=== PATIENT | female | born 1995 | race Caucasian/White ===

== ENCOUNTER → 2019-04-22 13:36 | Outpatient (BNVA) | payer SELFPAY | PROVIDERS: Visit Provider Nurse Practitioner | DX: R05 Cough (principal) | CPT/HCPCS: 87804 ==

== ENCOUNTER → 2020-01-19 12:58 | Outpatient (BNVA) | payer SELFPAY | PROVIDERS: Visit Provider Nurse Practitioner Women's Health | DX: Z34.90 Encounter for supervision of normal pregnancy, unspecified, unspecified trimester (principal) | CPT/HCPCS: 81000 ==

== ENCOUNTER 2020-01-20 15:17 | Observation (INO) | payer SELFPAY ==
[2020-01-20 15:16] VITALS: BMI 29.0
[2020-01-20 15:18] VITALS: BP 110/69; PULSE 89; RESP 18; TEMP 36.8; O2SAT 99
[2020-01-20] MEDS: sodium chloride 0.9% 1,000 ML 999 ML IV (15:49)
[2020-01-20] MEDS: metoclopramide 5 mg/mL SDV 2 mL 10 MG IVP ×2 (15:50→21:12)
[2020-01-20 16:32] LABS: Basophils % 0.2 %; Eosinophils # 0.1 10^3/uL (0.0-0.8); Eosinophils % 1.1 %; Hematocrit 37.6 % (37.0-47.0); Hemoglobin 12.8 g/dL (11.5-15.3); Lymphocytes # 1.6 10^3/uL (0.8-4.8); Lymphocytes % 25.5 %; Mean Corpuscular Hemoglobin 31.8 pg (28.0-34.0); Mean Corpuscular Volume 93.3 fL (81-99); Mean Platelet Volume 12.5 fL (7.4-10.4); Monocytes # 0.4 10^3/uL (0.2-0.9); Monocytes % 6.7 %; Neutrophils # 4.12 10^3/uL (1.8-7.7); Neutrophils % 66.2 %; Nucleated Red Blood Cells % 0 %; Platelet Count 221 10^3/cmm (130-400); Red Blood Count 4.03 10^6/uL (4.1-5.3); Red Cell Distribution Width 11.9 % (12.1-15.1); White Blood Count 6.2 10^3/uL (4.0-10.0)
[2020-01-20 16:38] LABS: Alanine Aminotransferase 63 U/L (0-33); Albumin Level 4.5 g/dL (3.5-5.2); Alkaline Phosphatase 59 IU/L (35-105); Blood Urea Nitrogen 4 mg/dL (6-20); Calcium 9.4 mg/dL (8.5-10.5); Carbon Dioxide 21 mmol/L (22-29); Chloride 101 mmol/L (98-107); Globulin 2.2 g/dL (1.3-4.6); Glomerular Filtration Rate 196.1 mL/min (90-130); Glucose 81 mg/dL (65-115); Osmolality Calculated 274 mOsm/kg (285-295); Sodium 134 mmol/L (136-145); Total Bilirubin 0.9 mg/dL (0.15-1.2); Total Protein 6.7 g/dL (6.6-8.7)
[2020-01-20] MEDS: D5-NS 0.45% + KCL 20 mEq 20 MEQ/1,000 ML BAG 500 MEQ IV ×2 (16:46→18:43)
[2020-01-20 16:48] LABS: Anion Gap 15.5 (5-19); Potassium 3.5 mmol/L (3.5-5.1)
[2020-01-20 16:49] LABS: Aspartate Amino Transferase 40 U/L (0-32)
[2020-01-20 20:59] VITALS: BP 96/63; PULSE 68; RESP 16; TEMP 36.7; O2SAT 98
--- NOTE | 2020-01-20 21:00 | P.SS_ITS ---
Short Stay Summary Providers Date of Admit/Discharge: 02/01/20 Attending Provider: Norm Uribe MD Chief Complaint: nasuea, vomiting HPI History of Present Illness Patient is a 25-year-old 3, para 2-0-0-2 with an LMP of 11/15/2019 and an EDC of 08/22/2019 based on LMP and consistent with an 8-week ultrasound, which places her at 9-3/7 weeks gestation. Patient had been seen in the office on 01/19/2020 by Kimberley Gonzalez for OB intake visit. She was reporting significant weight loss and difficulty keeping anything down including liquids. She was prescribed promethazine to be used in addition to B6 and Pepcid. She was to follow-up in the office the next day, 01/20/2020. When she came to the office, she was reporting continued significant nausea and vomiting with inability to keep much of anything down. As a result she was sent to the hospital for direct admission (observation status) for IV hydration and parenteral antiemetics. Patient was reporting lightheadedness, dizziness, and minimal urine output. She denied any actual syncopal episodes. Review of Systems Const: Reports: change in weight and fatigue; Denies: fever(s) or chills ENMT: Denies: throat pain or nasal congestion Card: Reports: lightheadedness; Denies: chest pain, palpitations or swelling of feet/ankles Resp: Denies: dyspnea, productive cough, non-productive cough or wheezing GI: Reports: nausea and vomiting; Denies: abdominal pain, diarrhea or constipation Musc: Denies: back pain Neuro: Reports: dizziness; Denies: headache(s) Psych: Denies: anxiety or depression Endo: Denies: polyuria, cold intolerance or heat intolerance [place]/Lymph: Denies: easy bruising or easy bleeding Home Meds/Allergies Home Medications and Allergies Home Medications Medication Instructions Recorded Confirmed Type prenat.vits,kenisha,[id number] 1 tab PO DAILY 01/19/20 01/19/20 History Allergies Allergy/AdvReac Type Severity Reaction Status Date / Time Penicillins Allergy childhood Verified 01/20/20 14:48 codeine AdvReac vomiting Verified 01/20/20 14:48 PFSH Acute PFSH: Medical History No pertinent past medical history neghx: htn,dm,thyroid,dvt/pe, herpes ---denies partner with herpes Surgical History Hx of cholecystectomy (~03/2016) Family History Grandmother Breast cancer Paternal-- dx age 30s Family/Other Breast cancer Maternal Great Grandmother-- dx age late 50's Grandfather Diabetes Maternal Hypertension Maternal Denies family history of Colon cancer Ovarian cancer Heart disease Bleeding disorder Uterine cancer Thyroid disease Stroke Social History Additional social history: - Tobacco use: Has Vaped since 2016-- currently vapes two times per day Alcohol use: denies Drug use: Marijuana-- last use mid December 2019 Female Reproductive History: : 3 Vitals/I&O/Wt Last Vital Signs Temp 98.1 F 01/20/20 20:59 Pulse 68 01/20/20 20:59 Resp 16 01/20/20 20:59 BP 96/63 01/20/20 20:59 Pulse Ox 98 01/20/20 20:59 Physical Exam Const: COMMON NORMALS: no acute distress, average body habitus, alert and well nourished GENERAL APPEARANCE: well developed ORIENTATION/CONSCIOUSNESS: Yes oriented to person, Yes oriented to place and Yes oriented to time Neck/C-Spine: COMMON NORMALS: Thyroid normal GENERAL: Yes trachea midline THYROID: Thyroid normal Resp: COMMON NORMALS: normal respiratory effort and clear to auscultation bilaterally AUSCULTATION: clear to auscultation bilaterally Cardio: COMMON NORMALS: regular rate, regular rhythm, No gallops present (Cardio), No murmurs present (Cardio) and No rub (Cardio) RATE: regular rate RHYTHM: regular rhythm GI: COMMON NORMALS: Soft to palpation, No hepatosplenomegaly present and no masses AUSCULTATION: Yes normoactive bowel sounds PALPATION: Yes Soft to palpation, Yes Tenderness to palpation present (GI) (Mildly tender upper abdomen), Yes No hepatosplenomegaly present and No Hernia present : COMMON NORMALS: Yes no CVA tenderness BLADDER/KIDNEY EXAM: Yes no CVA tenderness EXTERNAL FEMALE EXAM: No Hernia present Back/Pelvis: COMMON NORMALS: no CVA tenderness Neuro: SENSORIUM/ORIENTATION: Yes alert, Yes oriented to person, Yes oriented to place and Yes oriented to time Psych: COMMON NORMALS: normal affect MOOD & AFFECT: Yes euthymic mood Skin: COMMON NORMALS: no rashes or lesions noted GENERAL SKIN EXAM: no rashes or lesions noted and turgor decreased Hospital Course Hospital Course Patient was admitted to the hospital where she was started on IV fluid hydration and given IV Reglan and IM promethazine. After approximately 3 L of fluid, patient reported feeling much better and was having to urinate more frequently. She reported no further nausea or vomiting since getting the IV antiemetics. As a result, she was requesting to go home. She was discharged home in the evening of the date of admission. She was instructed to continue the oral promethazine as needed. She was also given a prescription for promethazine suppositories to be used if she was unable to keep the pills down. She was instructed to keep her next scheduled appointment in the office. SSS Data Data Completed and Pendin01/20/2020 CBC: WBC 6.2, hemoglobin 12.8, hematocrit 37.6, MCV 93.3, platelet 221,000 CMP: Sodium 134, potassium 3.5, chloride 101, CO2 21, BUN 4, creatinine 0.4, glucose 81, calcium 9.4, total bili 0.9, AST 40, ALT 63, alk phos 59, total protein 6.7, albumin 4.5 Serum magnesium 2.0 urinalysis: Specific gravity 1.025, trace protein, ketones 2+, blood negative, nitrate negative, leukocyte esterase negative. Diagnoses at Discharge Discharge Diagnosis (1) Hyperemesis gravidarum with dehydration: Status: Acute Discharge Plan Discharge Patient Disposition: Home Prescriptions: Continued prenat.vits,kenisha,[id number] Tablet 1 tab PO DAILY RF: 0 promethazine 25 mg tablet 25 mg PO Q6H PRN (Reason: nausea and vomiting) Qty: 30 RF: 0 promethazine 25 mg suppository 25 mg MS Q6H PRN (Reason: nausea and vomiting) Qty: 12 RF: 0 famotidine [Pepcid] 20 mg tablet 20 mg PO BID Qty: 60 RF: 1 Discharge Orders: Discharge Order (Routine); Ordered 01/20/20 Ordered By: Norm Uribe Patient Instructions: Hyperemesis Gravidarum, OB Undelivered Discharge Activity Restrictions/Additional Instructions: Call office in the morning to get a prescription of Reglan. Eat a bland diet, no greasy or spicy foods. Drink adequate fluids. Attestations Medical Necessity Statement*: Patient had been admitted as an observation status for IV hydration parenteral antiemetics. 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
--- NOTE | 2020-01-21 15:56 | PC.RESP ---
Smoking Cessation information sent to patient.
== END 2020-01-20 21:34 | disposition home or self-care (01) ==
LOC: OBGYN 20:58 → OPOB 01-21 08:27
PROVIDERS: Admitting Provider Obstetrics & Gynecology; Visit Provider Obstetrics & Gynecology
DX: O21.1 Hyperemesis gravidarum with metabolic disturbance (principal); Z3A.09 9 weeks gestation of pregnancy; O99.331 Smoking (tobacco) complicating pregnancy, first trimester; F17.290 Nicotine dependence, other tobacco product, uncomplicated
CPT/HCPCS: 12345; 36415; 80053; 81000; 83735; 85025; 96360; 96361; 96375; G0378; J2765; J7030

== ENCOUNTER → 2020-02-02 14:00 | Outpatient (BNVA) | payer SELFPAY | PROVIDERS: Visit Provider Obstetrics & Gynecology | DX: Z34.01 Encounter for supervision of normal first pregnancy, first trimester (principal) | CPT/HCPCS: 80307; 81000; 85027; 86592; 86762; 86803; 86850; 86900; 87086; 87340; 87806 ==

== ENCOUNTER → 2020-02-16 09:25 | Outpatient (BNVA) | payer SELFPAY | PROVIDERS: Visit Provider Obstetrics & Gynecology | DX: Z12.4 Encounter for screening for malignant neoplasm of cervix (principal); O99.331 Smoking (tobacco) complicating pregnancy, first trimester; O26.892 Other specified pregnancy related conditions, second trimester; Z67.91 Unspecified blood type, Rh negative | CPT/HCPCS: 81000; 87491; 87591; 88175 ==

== ENCOUNTER → 2020-03-10 11:29 | Outpatient (BNVA) | payer SELFPAY | PROVIDERS: Visit Provider Nurse Practitioner Women's Health | DX: Z34.90 Encounter for supervision of normal pregnancy, unspecified, unspecified trimester (principal) | CPT/HCPCS: 81000 ==

== ENCOUNTER → 2020-04-04 08:10 | Outpatient (BNVA) | payer SELFPAY | PROVIDERS: Visit Provider Obstetrics & Gynecology | DX: Z36.89 Encounter for other specified antenatal screening (principal) | CPT/HCPCS: 76805 ==

== ENCOUNTER → 2020-04-08 15:24 | Outpatient (BNVA) | payer SELFPAY | PROVIDERS: Visit Provider Obstetrics & Gynecology | DX: Z34.80 Encounter for supervision of other normal pregnancy, unspecified trimester (principal); Z3A.20 20 weeks gestation of pregnancy | CPT/HCPCS: 80307; 81000 ==

== ENCOUNTER → 2020-05-03 11:45 | Outpatient (BNVA) | payer SELFPAY | PROVIDERS: Visit Provider Obstetrics & Gynecology | DX: O26.892 Other specified pregnancy related conditions, second trimester (principal); O99.332 Smoking (tobacco) complicating pregnancy, second trimester; Z67.91 Unspecified blood type, Rh negative; R23.8 Other skin changes; Z3A.24 24 weeks gestation of pregnancy; R23.3 Spontaneous ecchymoses | CPT/HCPCS: 81000; 82247; 82950; 85025; 85610; 85730 ==

== ENCOUNTER → 2020-05-31 10:56 | Outpatient (BNVA) | payer SELFPAY | PROVIDERS: Visit Provider Obstetrics & Gynecology | DX: O26.892 Other specified pregnancy related conditions, second trimester (principal); Z67.91 Unspecified blood type, Rh negative | CPT/HCPCS: 84315; 86850 ==

== ENCOUNTER 2020-07-15 12:35 | Outpatient (CLI) | payer MEDICAID, SELFPAY ==
[2020-07-15 12:55] VITALS: BP 119/69; PULSE 103
[2020-07-15 13:33] VITALS: BP 106/62; PULSE 90
[2020-07-15 13:50] VITALS: BP 106/62; PULSE 90; RESP 18; TEMP 36.8
== END 2020-07-15 13:50 | disposition home or self-care (01) ==
LOC: OPOB 12:49 → OBGYN 12:50
PROVIDERS: Visit Provider Obstetrics & Gynecology
DX: O26.899 Other specified pregnancy related conditions, unspecified trimester (principal); Z3A.00 Weeks of gestation of pregnancy not specified; R10.9 Unspecified abdominal pain; N89.8 Other specified noninflammatory disorders of vagina
CPT/HCPCS: 81000; 99211

== ENCOUNTER → 2020-07-26 10:46 | Outpatient (BNVA) | payer MEDICAID, SELFPAY | PROVIDERS: Visit Provider Obstetrics & Gynecology | DX: Z34.80 Encounter for supervision of other normal pregnancy, unspecified trimester (principal) | CPT/HCPCS: 81000; 87081 ==

== ENCOUNTER → 2020-08-05 11:02 | Outpatient (BNVA) | payer SELFPAY | PROVIDERS: Visit Provider Obstetrics & Gynecology | DX: Z34.80 Encounter for supervision of other normal pregnancy, unspecified trimester (principal) | CPT/HCPCS: 81000 ==

== ENCOUNTER → 2020-08-09 11:00 | Outpatient (BNVA) | payer MEDICAID, SELFPAY | PROVIDERS: Visit Provider Obstetrics & Gynecology | DX: Z34.80 Encounter for supervision of other normal pregnancy, unspecified trimester (principal); Z20.822 Contact with and (suspected) exposure to COVID-19 | CPT/HCPCS: 81000; 87635 ==

== ENCOUNTER 2020-08-19 15:10 | Inpatient (IN) | payer MEDICAID, SELFPAY ==
[2020-08-19] VITALS (56 sets, daily range): BP systolic 91–119; BP diastolic 49–75; PULSE 65–103; RESP 16–18; TEMP 36.4–36.8; O2SAT 93–100; BMI 31.4
--- NOTE | 2020-08-19 16:40 | PM.PN ---
Subjective Subjective: Interval history: Ms. Tsang is a 25 year old new patient with LMP of 11/15/2019, AJITH 08/21/2020 based on LMP and consistent with 8-week ultrasound ,placing her at 39 5/7 weeks today. Vitals/I&O/Wt Last Vital Signs Pulse 85 08/19/20 16:18 BP 111/66 08/19/20 16:18 Physical Exam Narrative: EXAM NARRATIVE: GA: Alert and oriented ?3. Lungs: Clear to auscultation bilaterally. Heart: Regular rhythm and rate. Abdomen: Gravid, full the height equals dates, nontender. CALL CENTER REPRESENTATIVE: SVE; dilation: 4-5 cm, effacement: 80%, station: -3, presentation: Vertex, membranes: Intact. Extremities: no edema, no cyanosis, no calves pain. heart tracing: Basal rate: 140 bpm, Variability: Moderate, Accelerations: Present, Decelerations: Absent, Contraction: q3min irregular A&P Assessment and plan (1) Term : MrsHawa: 25-year-old female with an estimated gestational age at 39 weeks 5 days with irregular contractions at this time. In active labor. heart tracing category 1, anticipate vaginal delivery. Plan: Epidural anesthesia Continuous monitoring. 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
[2020-08-19] MEDS: oxytocin 30 UNIT/500 ML BAG IV (16:48)
[2020-08-19] MEDS: lactated ringers 1,000 ML 999 ML IV (16:48)
[2020-08-19 17:43] LABS: Basophils % 0.4 %; Eosinophils # 0.1 10^3/uL (0.0-0.8); Hematocrit 33.7 % (37.0-47.0); Hemoglobin 10.7 g/dL (11.5-15.3); Lymphocytes # 1.5 10^3/uL (0.8-4.8); Lymphocytes % 18.9 %; Mean Corpuscular HGB Conc 31.8 g/dL (30.0-36.0); Mean Corpuscular Hemoglobin 29.1 pg (28.0-34.0); Mean Corpuscular Volume 91.6 fL (81-99); Mean Platelet Volume 11.4 fL (7.4-10.4); Monocytes # 0.5 10^3/uL (0.2-0.9); Monocytes % 6.1 %; Neutrophils # 5.76 10^3/uL (1.8-7.7); Neutrophils % 73.2 %; Nucleated Red Blood Cells % 0 %; Platelet Count 252 10^3/cmm (130-400); Red Blood Count 3.68 10^6/uL (4.1-5.3); Red Cell Distribution Width 13.1 % (12.1-15.1); White Blood Count 7.9 10^3/uL (4.0-10.0)
--- NOTE | 2020-08-19 17:47 | P.ANESASSM_ITS ---
Pre-Anesthetic Assessment Pre-Anesthetic Assessment: Height/Weight: Height 1.68 m Weight 88.451 kg Pulse BP 80 110/71 08/19/20 17:33 08/19/20 17:33 Preop Diagnosis: Active Labor Proposed Procedure: Labor Epidural Was Beta Johann taken within 24 hours: N/A Was Clonidine taken within 24 hours: N/A Last intake: solids -1230 liquids- water 1730 Social: Social History: Tobacco and No alcohol Exam: Pre-Anes Outpt Exam: alert, oriented x 3 and clear to auscultation bilaterally Airway: Submandibular: WNL Cervical ROM: WNL MP: 2 Dentition: Full History/ROS: No significant history except as noted Pulmonary: Pulmonary: None reported CV/HEM: CV/HEM: None reported : : None reported Hepatic: Hepatic: None reported GI: GI: None reported Metabolic: Metabolic: None reported Musc/skel: Musc/skel: None reported Neuropsych: Neuropsych: Anxiety Anesthetic Plan: ASA status: 2 Anesthesia: Anesthesia Evaluation and Eval. for regional block Other: Labor Epidural Risk of > 500 ml blood loss (7ml/kg in children): No Meds/Allergies Current Medications: Current Medications Generic Name Dose Route Start Last Admin Trade Name Freq PRN Reason Stop Dose Admin Oxytocin 30 unit in 500 ml s @ 1 mls/hr 08/19/20 15:45 08/19/20 16:48 Pitocin IV 1 milliunit/min .Q24H DALIA 1 mls/hr Administration Protocol 1 MILLIUNIT/MIN Lactated Ringer's 1,000 mls @ 999 m ls/hr 08/19/20 16:12 08/19/20 16:48 Lactated Ringers IV 999 mls/hr .Q1H1M PRN Administration See label comment s PFSH Anesthesia PFSH: Medical History No pertinent past medical history neghx: htn,dm,thyroid,dvt/pe, herpes ---denies partner with herpes Surgical History Hx of cholecystectomy (~03/2016) Family History Grandmother Breast cancer Paternal-- dx age 30s Family/Other Breast cancer Maternal Great Grandmother-- dx age late 50's Grandfather Diabetes Maternal Hypertension Maternal Denies family history of Colon cancer Ovarian cancer Heart disease Bleeding disorder Uterine cancer Thyroid disease Stroke Social History Additional social history: - Tobacco use: Has Vaped since 2016-- currently vapes 2-3 times weekly Alcohol use: denies Drug use: Marijuana-- last use mid December 2019 Female Reproductive History: : 3 Data Anesthesia CBC & Chem 7: 08/19/20 16:25 Other Labs: Laboratory Results - last 48 hr 08/19/20 16:25 WBC 7.9 RBC 3.68 L Hgb 10.7 L Hct 33.7 L MCV 91.6 MCH 29.1 MCHC 31.8 RDW 13.1 Plt Count 252 MPV 11.4 H Neut % (Auto) 73.2 Lymph % (Auto) 18.9 Prentiss % (Auto) 6.1 Eos % (Auto) 1.0 Baso % (Auto) 0.4 Neut # (Auto) 5.76 Lymph # (Auto) 1.5 [place]rentiss # (Auto) 0.5 Eos # (Auto) 0.1 Baso # (Auto) 0.0 Nucleated RBC % (auto) 0 Nucleated RBCs # 0.0 Cardiac Studies: No Data to Display
[2020-08-19] MEDS: dextrose 5%-lactated ringers 1,000 ML 125 ML IV (18:09)
[2020-08-19 18:11] LABS: Amphetamines Screen Urine Negative (Negative); Barbiturates Screen Urine Negative (Negative); Benzodiazepines Screen Urine Negative (Negative); Cocaine Screen Urine Negative (Negative); Opiate Screen Urine Negative (Negative); PCP Screen Urine Negative (Negative); THC Screen Urine Negative (Negative)
--- NOTE | 2020-08-19 18:21 | P.ANES_ITS ---
Anesthesia Procedures Procedure/Date: 08/19/20 Epidural: Time Out Performed: Yes Consents Signed: Procedure Consent Consent: requested by attending/covering physician and from patient Lumbar Level: L3-L4 Epidural position: sitting Epidural procedure: sterile prep of area, 1% lidocaine to numb the area, negative for paresthesia passed, test do se given, 1.5% xylocaine 1:200k epi, no systemic response, sterile dressing applied, L.U.D. no apparent complications and 0.2% Ropiavacaine @ mls/hr (13 ml/hr)
--- NOTE | 2020-08-19 20:18 | PM.DELIVERY ---
Delivery Note: Date of delivery: August 19, 2020 Pre-delivery diagnoses: Term Post-delivery diagnoses: Term delivered Procedure: Spontaneous vaginal delivery Op report anesthesia: Epidural Delivering Physician: Frank Romero MD Estimated blood loss (mL): 300 Pre-Delivery Course: Ms. Tsang is a 25 year old new patient with LMP of 11/15/2019, AJITH 08/21/2020 based on LMP and consistent with 8-week ultrasound ,placing her at 39 5/7 weeks today. She has been experiencing painful uterine contractions for the past 2 days. The contractions are occurring at 3-4 minute intervals with approximately 30 second duration. She continues to feel movement between the contractions. She denies vaginal bleeding or rupture of membranes. Refers passing her mucous plug this morning. At the clinic cervical dilation noted to be 4 to 5 cm with 80% effacement, -3 station, vertex presentation with intact membranes. Admitted to L&D oxytocin started for augmentation of labor and she progressed rapidly to have a spontaneous vaginal delivery. CC: Onset of labor at term. HPI: Received appropriate care. Daily vitamins since the start of care. labs have all been normal, including negative for HIV. She was found to negative for Group B Strep from screening at 36 weeks. She has gained approximately 21 lbs 10 oz throughout the . She denies a history of HTN during . Glucose tolerance screening for gestational diabetes was negative. complicated by growth restricted fetus due to tobacco use. Delivery: The patient was noted to be complete and pushing, so was placed in the dorsal lithotomy position, prepped and draped in the usual sterile fashion for a vaginal delivery. Pt. Noted to have epidural anesthesia. At 2009 the patient delivered a viable female infant weighing 3020 g with scores of 9 and 10 at one and five minutes, respectively. The vertex was delivered spontaneously over an intact perineum. The patient was asked to push and the head delivered spontaneously in the ANDREW position, over an intact perineum. A nuchal cord was checked and 1 noted, and delivered through and relieved around head as necessary. The anterior shoulder delivered easily and the posterior shoulder followed. The remainder of the infant was easily delivered and the oropharynx and nasopharynx was bulb suctioned. The was noted to have spontaneous cry and spontaneous movement of all four extremities. The cord was clamped x 2 and cut and noted to have 2 arteries and one vein. The infant was passed to the mother's abdomen where nursing personnel were in attendance. Cord blood sample was then obtained. The placenta delivered intact spontaneously and the uterus was explored. 20 units of Pitocin was placed in the IV bag to firm the uterus. Examination of the cervix and vaginal vault did not reveal any lacerations. A vaginal pack was then placed. Examination of the perineum showed no lacerations. The vaginal pack was then removed. The patient tolerated this procedure well, and recovered in L&D with her in their LDR room. All sponge and needle counts were correct. 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
[2020-08-19] MEDS: ibuprofen 800 mg tablet PO (22:13)
[2020-08-20] VITALS (15 sets, daily range): BP systolic 82–125; BP diastolic 44–62; PULSE 61–83; RESP 18; TEMP 36.5–36.7
[2020-08-20] MEDS: acetaminophen 325 mg Tablet 650 MG PO (05:34)
[2020-08-20 09:15] LABS: Hematocrit 30.9 % (37.0-47.0); Hemoglobin 9.8 g/dL (11.5-15.3); Mean Corpuscular HGB Conc 31.7 g/dL (30.0-36.0); Mean Corpuscular Volume 91.4 fL (81-99); Mean Platelet Volume 11.1 fL (7.4-10.4); Platelet Count 214 10^3/cmm (130-400); Red Blood Count 3.38 10^6/uL (4.1-5.3); White Blood Count 10.2 10^3/uL (4.0-10.0)
[2020-08-20] MEDS: ibuprofen 800 mg tablet PO ×3 (09:18→21:30)
[2020-08-20] MEDS: prenatal vitamin Capsule 1 CAP PO (09:18)
[2020-08-20] MEDS: docusate sodium 100 mg Capsule PO ×2 (09:18→17:23)
--- NOTE | 2020-08-20 13:40 | P.DS_ITS ---
Discharge Providers DIRECT SUPPORT STAFF Date of Admission: 08/19/20 15:10 Date of Discharge: 08/20/20 Attending Provider at Admission: Frank Romero MD Attending Provider at Discharge: Frank Romero MD Diagnoses at Discharge Discharge Diagnosis (1) Rh negative status during in second trimester: Status: Acute (2) Tobacco use in : Status: Acute Qualifiers: Trimester: second trimester Qualified Code(s): O99.332 - Smoking (tobacco) complicating , second trimester (3) Term delivered: Status: Acute Reason for Visit Reason for Visit: Induction Hospital Course Hospital Course Ms. Tsang is a 25 year old new patient with LMP of 11/15/2019, AJITH 08/21/2020 based on LMP and consistent with 8-week ultrasound ,placing her at 39 5/7 weeks on admission after office visit. During the office visit she complained of having contractions on examination she was noted to be 4 to 5 cm in dilation with 80% effacement. After admission to labor and delivery oxytocin was given for augmentation of labor and she progressed to have a spontaneous vaginal delivery of a term male small for gestational age, Apgars 8/9 with a birthweight of 4 3020 g. observation has been uneventful. She is afebrile hemodynamically stable. Tolerating diet well. Ambulating without difficulty. She refers she wants to use the Nexplanon for contraception at the 6-week visit. Information Peripartum Data: Infant Delivery Method: Vaginal Physical Exam Narrative: EXAM NARRATIVE: GA; alert and oriented x 3 HEENT: normal Breasts: engorged Nipples - skin intact Lungs; clear to auscultation Heart: regular rhythm, no murmurs. Abd: Appropriately tender. BS+. Uterine fundus below umbilicus. No Fundal Tenderness. Perineum: normal lochia. Extremities: no edema, no cyanosis, no tenderness. Urinary Catheter Management^: Ruiz: Cath Placed During This Visit: yes, but has since been removed by the nurse Reason for Continuing Indwelling Catheter: Decision to DC Catheter Urinary Catheter Date of Insertion: 08/19/20 Urinary Catheter Time of Insertion: 18:35 Date Urinary Catheter Removed: 08/19/20 Time Urinary Catheter Discontinued: 20:00 Discharge Data Data Completed and Pending: Pending at discharge Category Date Time Status Complete Crossmat ch Routine Lab 08/19/20 16:25 Results Rho D Immune Glob ulin Routine Lab 08/19/20 16:25 Results Type and Screen R outine Lab 08/19/20 16:25 Results Labs from last 24 hours 08/20/20 08/20/20 08/19/20 09:05 09:05 16:25 WBC 10.2 H RBC 3.38 L Hgb 9.8 L Hct 30.9 L MCV 91.4 MCH 29.0 MCHC 31.7 RDW 13.0 Plt Count 214 MPV 11.1 H Neut % (Auto) Lymph % (Auto) [place] % (Auto) Eos % (Auto) Baso % (Auto) Neut # (Auto) Lymph # (Auto) [place] # (Auto) Eos # (Auto) Baso # (Auto) Nucleated RBC % (a uto) Nucleated RBCs # Urine Opiates Scre en Negative Ur Barbiturates Sc reen Negative Ur Phencyclidine S crn Negative Ur Amphetamines Sc reen Negative U Benzodiazepines Scrn Negative Urine Cocaine Scre en Negative U Marijuana (THC) Screen Negative Blood Type Rho(D) Type Antibody Screen Screen Negative 08/19/20 08/19/20 16:25 16:25 WBC 7.9 RBC 3.68 L Hgb 10.7 L Hct 33.7 L MCV 91.6 MCH 29.1 MCHC 31.8 RDW 13.1 Plt Count 252 MPV 11.4 H Neut % (Auto) 73.2 Lymph % (Auto) 18.9 [place] % (Auto) 6.1 Eos % (Auto) 1.0 Baso % (Auto) 0.4 Neut # (Auto) 5.76 Lymph # (Auto) 1.5 [place] # (Auto) 0.5 Eos # (Auto) 0.1 Baso # (Auto) 0.0 Nucleated RBC % (a uto) 0 Nucleated RBCs # 0.0 Urine Opiates Scre en Ur Barbiturates Sc reen Ur Phencyclidine S crn Ur Amphetamines Sc reen U Benzodiazepines Scrn Urine Cocaine Scre en U Marijuana (THC) Screen Blood Type A Negative Rho(D) Type Negative / 0 Antibody Screen Negative Screen Vitals: Last Vital Signs Temp 98.3 F 08/19/20 18:50 Pulse 65 08/20/20 06:24 Resp 17 08/19/20 20:30 BP 112/57 08/20/20 06:24 Pulse Ox 100 08/19/20 18:37 Discharge Plan Discharge Patient Disposition: Home Condition: Stable Prescriptions: New ibuprofen 800 mg tablet 800 mg PO TID PRN (Reason: pain) Qty: 60 RF: 0 Iron (ferrous sulfate) 325 mg (65 mg iron) tablet 325 mg PO BID Qty: 60 RF: 0 Colace 100 mg capsule 100 mg PO BID Qty: 60 RF: 0 acetaminophen 325 mg capsule 325 mg PO Q4H PRN (Reason: fever or pain) Qty: 60 RF: 0 Continued prenat.vits,kenisha,[id number] Tablet 1 tab PO DAILY RF: 0 promethazine 25 mg tablet 25 mg PO Q6H PRN (Reason: nausea and vomiting) Qty: 30 RF: 0 famotidine [Pepcid] 20 mg tablet 20 mg PO BID PRN (Reason: Nausea) RF: 0 Discharge Orders: Discharge Order (Routine); Ordered 08/20/20 Ordered By: Frank Romero Referrals: Frank Romero MD [Physician] - 6 Weeks Discharge Diet: Usual diet Discharge Activity: Increase activity as tolerated Patient Instructions: Opioid Safety Activity Restrictions/Additional Instructions: 1. Please call [facility] [place] [facility] clinic on next working day to make your appointment in 6 weeks. 2. Please stay home until you come back to the clinic on first post-operative check up. 3. Please follow instructions on your medications CAREFULLY. 4. If you have abdominal incision, do not cover it unless dressing is necessary because of drainage. OK to shower, but avoid bath. Leave steri-strips until they fall off. If they are still on one week after surgery, you may remove them. 5. If you had vaginal surgery or vaginal repair, Dr. Romero may instruct you to take SITZ bath. 6. Yellow, blood tinged odorous vaginal discharge is usually normal after hysterectomy or vaginal surgeries. 7. No sexual intercourse, tampons, or douches until you are completely released from the post-operative care. 8. Avoid constipation by eating right and maybe using some Metamucil or Milk of Magnesia. 9. All prescription refills are given during the working hours. Please do no wait till it runs out. Call the clinic at [phone] before your medication runs out. The clinic will get in touch with your doctor to prescribe medications if necessary. 10. Please remain within 40 mile radius from our hospital because emergencies do happen now and then during the post-operative period. 11. If you have stairs at home, take one step at a time slowly and minimize the number of trips. It helps to stay in one floor for the next few days. No lifting except what you can lift by one hand until you are released from the post-operative care. 12. Driving is discouraged until you are well healed. It may be 3-4 weeks before you feel strong enough to drive. You should be able to turn and look through the rear window without pain and you should be able to push the brake pedal very hard without pain before you drive. No fast rules, but SAFETY should be your primary concern. DO NOT drive if you are on sedating medications such as narcotics. 13. Call the clinic (during working hours) to make urgent appointment or go to the Emergency room, if any of the following occurs: i. Vaginal bleeding becomes heavy, more than a period. ii. Incision becomes red and sore, or drains pus. iii. Your temperature is over 100.4 or you have chill. iv. IV site becomes red and swollen (a little ``knot?? is usually OK) v. Persistent nausea and vomiting vi. Persistent constipation or diarrhea vii. Rash or allergic reaction to medications. Discharge Attestations DIRECT SUPPORT STAFF Time Spent in Discharge Care*: greater than 30 min Coding Level of Care Code Acute Licensing Analyst for Chg Fwd Diagnoses Rh negative status during in second trimester O26.892; Z67.91 Tobacco use in O99.332 Trimester: second trimester Term delivered O80
== END 2020-08-20 21:35 | disposition home or self-care (01) | DRG 807 ==
LOC: OBGYN 15:25
PROVIDERS: Admitting Provider Obstetrics & Gynecology; Visit Provider Obstetrics & Gynecology
DX: O99.334 Smoking (tobacco) complicating childbirth (principal); Z37.0 Single live birth; O36.5930 Maternal care for other known or suspected poor fetal growth, third trimester, not applicable or unspecified; O26.893 Other specified pregnancy related conditions, third trimester; O69.81X0 Labor and delivery complicated by cord around neck, without compression, not applicable or unspecified; F17.290 Nicotine dependence, other tobacco product, uncomplicated; Z3A.39 39 weeks gestation of pregnancy; Z67.11 Type A blood, Rh negative
CPT/HCPCS: 36415; 51702; 59025; 59409; 80306; 81000; 85025; 85027; 85460; 86850; 86900; 90384; 96372; 96374; J2795; J3010

== ENCOUNTER → 2021-04-30 14:59 | Outpatient (BNVA) | payer MEDICAID, SELFPAY | PROVIDERS: Visit Provider Nurse Practitioner | DX: J32.9 Chronic sinusitis, unspecified (principal) | CPT/HCPCS: 87400 ==

== ENCOUNTER 2021-11-07 19:43 | Emergency (ER) | payer MEDICAID, SELFPAY ==
[2021-11-07 20:13] VITALS: BP 119/76; PULSE 53; RESP 17; TEMP 36.8; O2SAT 100
--- NOTE | 2021-11-07 20:16 | XRR_ITS ---
PROCEDURE INFORMATION: Exam: XR Chest Exam date and time: 11/07/2021 8:31 PM Age: 26 years old Clinical indication: Chest wall pain; Additional info: Chest pain TECHNIQUE: Imaging protocol: Radiologic exam of the chest. Views: 2 views. COMPARISON: CR Chest 1 [place] [id number] 03/21/2016 7:55 PM FINDINGS: Lungs: Unremarkable. No consolidation. Pleural spaces: Unremarkable. No pleural effusion. No pneumothorax. Heart/Mediastinum: Unremarkable. No cardiomegaly. Bones/joints: Unremarkable. XR/XR chest 2V* [id number] IMPRESSION: No acute findings.
--- NOTE | 2021-11-07 20:17 | ECG_ITS ---
[facility] Test Date: 2021-11-07 Pat Name: Rosie Tsang Department: Room: Gender: Female Head Concierge: : 1995 Requested By: Stephanie Bennett Order Number: [id number] Zelaya MD: Loretta Cole M.D. Measurements Intervals [place] Rate: 60 P: 75 AR: 156 QRS: 58 QRSD: 88 T: 51 QT: 412 QTc: 412 Interpretive Statements SINUS RHYTHM WITH SINUS ARRHYTHMIA POSSIBLE LEFT ATRIAL ENLARGEMENT [-0.1mV P-WAVE IN V1/V2] POSSIBLE RIGHT VENTRICULAR CONDUCTION DELAY [RSR (QR) IN V1/V2] Compared to ECG 03/21/2016 18:20:40 T-wave abnormality no longer present Electronically Signed On 11-08-2021 17:34:46 CDT by Loretta Cole M.D. [id number] f
--- NOTE | 2021-11-07 20:57 | W.ED.CHESTPA ---
HPI - Chest Pain General: Chief Complaint: Chest Pain Stated Complaint: Chest Pain Time Seen by Provider: 11/07/21 20:19 Source: patient Mode of arrival: ambulatory Limitations: no limitations History of Present Illness: 26-year-old female states she is scheduled in the kitchen table tonight few hours ago she should get this cramping type pain in the center of her chest or upper abdomen she states it radiated to her back she is also having some shortness of breath states pain is 6 out of 10 she denies any fever denies any vomiting no heart history she has had a recent trip a month ago to [place] nothing after that. She is on control. Associated symptoms: Reports abdominal pain; Deny dyspnea or fever(s) Review of Systems Const: Denies: fever(s), chills, body aches or change in appetite Eyes: Denies: blurry vision or eye discomfort ENMT: Denies: throat pain or dental pain Card: Reports: chest pain Resp: Denies: dyspnea GI: Reports: abdominal pain : Denies: dysuria Musc: Denies: neck pain or back pain Skin/Breast: Denies: rash Neuro: Denies: headache(s) Psych: Denies: depression [place]/Lymph: Denies: easy bruising All/Imm: Denies: urticaria PFSH ED PFSH: Medical History No pertinent past medical history neghx: htn,dm,thyroid,dvt/pe, herpes ---denies partner with herpes Psychiatric care Surgical History Hx of cholecystectomy (~03/2016) Family History Grandmother Breast cancer Paternal-- dx age 30s Family/Other Breast cancer Maternal Great Grandmother-- dx age late 50's Grandfather Diabetes Maternal Hypertension Maternal Denies family history of Colon cancer Ovarian cancer Heart disease Bleeding disorder Uterine cancer Thyroid disease Stroke Social History Smoking and tobacco status: current every day smoker e-cigarettes E-Cigarette Details: vaporizer device and with nicotine E-cig/vape details: Refill/week. Quit status (tobacco): considering quitting Second hand smoke exposure: No Smoking risk assessment/counseling performed?: No Alcohol intake: former Desire information about alcohol rehabilitation?: No Counseling given: No Desire information about substance/drug rehabilitation?: No Counseling given: No Additional social history: - Tobacco use: Has Vaped since 2017-- currently vapes 2-3 times weekly Alcohol use: denies Drug use: Marijuana-- last use mid December 2019 Physical Exam Const: COMMON NORMALS: no acute distress, patient oriented x3 and healthy appearing HENMT: COMMON NORMALS: normocephalic and atraumatic HEAD & SCALP: normocephalic and atraumatic Eye: COMMON NORMALS: Equal, round and reactive pupils present and EOMs intact bilaterally PUPIL: Yes Equal, round and reactive pupils present Neck/C-Spine: COMMON NORMALS: full ROM and supple Chest: COMMONS NORMALS: normal inspection of the chest and normal palpation of entire chest wall Resp: COMMON NORMALS: normal respiratory effort, No retractions, No use of accessory muscles and clear to auscultation bilaterally AUSCULTATION: clear to auscultation bilaterally Cardio: COMMON NORMALS: regular rate, regular rhythm and No murmurs present (Cardio) RATE: regular rate RHYTHM: regular rhythm GI: COMMON NORMALS: Normal to inspection, nondistended, normoactive bowel sounds present, Soft to palpation, non-tender and no masses PALPATION: Yes Soft to palpation Extremity: COMMON NORMALS: normal to inspection and full ROM Neuro: COMMON NORMALS: patient oriented x3, moves all extremities and no focal motor deficits Psych: COMMON NORMALS: mental status grossly normal, Normal thought process present and cooperative THOUGHT PROCESS: Normal thought process present Skin: COMMON NORMALS: no rashes or lesions noted and no wounds GENERAL SKIN EXAM: no rashes or lesions noted Course Vital Signs: Vital signs: Vital Signs Temperature 98.3 F 11/07/21 20:13 Pulse Rate 52 L 11/07/21 22:28 Respiratory Rate 18 11/07/21 22:28 Blood Pressure 111/65 11/07/21 22:28 Pulse Oximetry 53 L 11/07/21 22:28 Oxygen Delivery Me thod 11/07/21 20:13 MDM - Chest Pain Medical Decision Making Patient presents here with chest and abdominal pain atypical in nature could be gastritis her pain is much improved here D-dimer blood work are normal no signs of acute coronary syndrome or dissection we will start on Protonix she is to follow-up with PCP and return if worsening she understands agrees to plan. Lab Data : 11/07/21 20:43 11/07/21 20:43 Radiology Impressions Chest X-Ray 11/07/21 20:16 IMPRESSION: No acute findings. Laboratory Results WBC 5.9 10^3/uL (4.0-10.0) 11/07/21 20:43 RBC 4.26 10^6/uL (4.1-5.3) 11/07/21 20:43 Hgb 12.9 g/dL (11.5-15.3) 11/07/21 20:43 Hct 40.2 % (37.0-47.0) 11/07/21 20:43 MCV 94.4 fl (81-99) 11/07/21 20:43 MCH 30.3 pg (28.0-34.0) 11/07/21 20:43 MCHC 32.1 g/dL (30.0-36.0) 11/07/21 20:43 RDW 13.5 % (12.1-15.1) 11/07/21 20:43 Plt Count 174 10^3/cmm (130-400) 11/07/21 20:43 MPV 12.1 fL (7.4-10.4) H 11/07/21 20:43 Neut % (Auto) 66.6 % 11/07/21 20:43 Lymph % (Auto) 26.5 % 11/07/21 20:43 Sac % (Auto) 4.4 % 11/07/21 20:43 Eos % (Auto) 1.7 % 11/07/21 20:43 Baso % (Auto) 0.3 % 11/07/21 20:43 Neut # (Auto) 3.95 10^3/uL (1.8-7.7) 11/07/21 20:43 Lymph # (Auto) 1.6 10^3/uL (0.8-4.8) 11/07/21 20:43 Sac # (Auto) 0.3 10^3/uL (0.2-0.9) 11/07/21 20:43 Eos # (Auto) 0.1 10^3/uL (0.0-0.8) 11/07/21 20:43 Baso # (Auto) 0.0 10^3/uL (0.0-0.1) 11/07/21 20:43 Nucleated RBC % (auto) 0 % 11/07/21 20:43 Nucleated RBCs # 0.0 /100WBC 11/07/21 20:43 D-Dimer 0.56 ug/mIFEU (0-0.59) 11/07/21 20:43 Sodium 137 mmol/L (136-145) 11/07/21 20:43 Potassium 3.7 mmol/L (3.5-5.1) 11/07/21 20:43 Chloride 101 mmol/L (98-107) 11/07/21 20:43 Carbon Dioxide 26 mmol/L (22-29) 11/07/21 20:43 Anion Gap 13.7 (5-19) 11/07/21 20:43 BUN 8 mg/dL (6-20) 11/07/21 20:43 Creatinine 0.7 mg/dL (0.5-0.9) 11/07/21 20:43 GFR Calculation 102.0 mL/min (90-130) 11/07/21 20:43 Glucose 112 mg/dL (65-115) 11/07/21 20:43 Calculated Osmolality 283 mOsm/kg (285-295) L 11/07/21 20:43 Calcium 9.2 mg/dL (8.5-10.5) 11/07/21 20:43 Total Bilirubin 0.4 mg/dL (0.15-1.2) 11/07/21 20:43 AST 16 U/L (0-32) 11/07/21 20:43 ALT 18 U/L (0-33) 11/07/21 20:43 Alkaline Phosphatase 63 U/L (35-105) 11/07/21 20:43 Troponin T Baseline 6 ng/L (0-10) 11/07/21 20:43 Total Protein 7.4 g/dL (6.6-8.7) 11/07/21 20:43 Albumin 4.8 g/dL (3.5-5.2) 11/07/21 20:43 Globulin 2.6 g/dL (1.3-4.6) 11/07/21 20:43 HCG, Qual Negative (Negative) 11/07/21 22:08 EKG Data EKG 1: I personally reviewed and interpreted this EKG as follows: EKG interpretation date: 11/07/21 EKG interpretation time: 18:41 Interpretation: nsr hr 90no st or t wave abnormalities qrs 98 qtc 371 Discharge Plan Discharge Patient Disposition: Home Clinical Impression: Chest pain, Abdominal pain Condition: Stable Prescriptions: New Protonix 40 mg tablet,delayed release (DR/EC) 40 mg PO DAILY Qty: 60 0RF No Action norgestimate-ethinyl estradiol [Tri-Sprintec (28)] 0.18/0.215/0.25 mg-35 mcg (28) tablet 1 tab PO DAILY fluoxetine [Prozac] 20 mg capsule 20 mg PO DAILY Qty: 30 2RF acetaminophen 325 mg capsule 325 mg PO Q4H PRN (Reason: fever or pain) Qty: 60 0RF Discharge Orders: Discharge ED (Routine); Ordered 11/07/21 Ordered By: Adeel Hardin Discharge Diet: Advance as tolerated Discharge Activity: Resume usual activity Patient Instructions: Chest Pain (ED), Abdominal Pain (ED) Coding Level of Care Code ED Social Media Sr Strategy Manager for Chg Fwd Exam Comprehensive
[2021-11-07 21:07] LABS: D Dimer 0.56 ug/mIFEU (0-0.59)
[2021-11-07 21:14] LABS: Basophils % 0.3 %; Eosinophils # 0.1 10^3/uL (0.0-0.8); Eosinophils % 1.7 %; Hematocrit 40.2 % (37.0-47.0); Hemoglobin 12.9 g/dL (11.5-15.3); Lymphocytes # 1.6 10^3/uL (0.8-4.8); Lymphocytes % 26.5 %; Mean Corpuscular HGB Conc 32.1 g/dL (30.0-36.0); Mean Corpuscular Hemoglobin 30.3 pg (28.0-34.0); Mean Corpuscular Volume 94.4 fl (81-99); Mean Platelet Volume 12.1 fL (7.4-10.4); Monocytes # 0.3 10^3/uL (0.2-0.9); Monocytes % 4.4 %; Neutrophils # 3.95 10^3/uL (1.8-7.7); Neutrophils % 66.6 %; Nucleated Red Blood Cells % 0 %; Platelet Count 174 10^3/cmm (130-400); Red Blood Count 4.26 10^6/uL (4.1-5.3); Red Cell Distribution Width 13.5 % (12.1-15.1); White Blood Count 5.9 10^3/uL (4.0-10.0)
[2021-11-07] MEDS: lidocaine 2% viscous 15 ML, aluminum-mag hydrox-simethicon 30 ML, sucralfate oral liq 1 GM PO (21:25)
[2021-11-07 21:28] LABS: Alanine Aminotransferase 18 U/L (0-33); Albumin Level 4.8 g/dL (3.5-5.2); Alkaline Phosphatase 63 U/L (35-105); Anion Gap 13.7 (5-19); Aspartate Amino Transferase 16 U/L (0-32); Blood Urea Nitrogen 8 mg/dL (6-20); Calcium 9.2 mg/dL (8.5-10.5); Carbon Dioxide 26 mmol/L (22-29); Chloride 101 mmol/L (98-107); Globulin 2.6 g/dL (1.3-4.6); Glucose 112 mg/dL (65-115); Osmolality Calculated 283 mOsm/kg (285-295); Potassium 3.7 mmol/L (3.5-5.1); Sodium 137 mmol/L (136-145); Total Bilirubin 0.4 mg/dL (0.15-1.2); Total Protein 7.4 g/dL (6.6-8.7)
[2021-11-07 21:42] LABS: Troponin(5th) Baseline 6 ng/L (0-10)
[2021-11-07] MEDS: acetaminophen 500 mg Tablet 1000 MG PO (22:05)
[2021-11-07 22:17] LABS: HCG Qualitative Urine. Negative (Negative)
[2021-11-07 22:28] VITALS: BP 111/65; PULSE 52; RESP 18; O2SAT 53
[2021-11-07 22:39] VITALS: BP 117/66; PULSE 55; RESP 16; O2SAT 98
== END 2021-11-07 22:40 | disposition home or self-care (01) ==
PROVIDERS: Emergency Provider Emergency Medicine
DX: R07.9 Chest pain, unspecified (principal); R10.9 Unspecified abdominal pain; F17.290 Nicotine dependence, other tobacco product, uncomplicated
CPT/HCPCS: 71046; 80053; 81025; 84484; 85025; 85378; 93005; 99285

== ENCOUNTER 2024-11-10 19:29 | Emergency (ER) | payer MEDICAID, SELFPAY ==
--- OUTSIDE RECORDS SUMMARY | 2022-07-17 07:30 | XMS_ITS | Continuity of Care Document ---
Author Organization [facility] Address [id number] [address] Phone Care Team Providers Care Chief Librarian Extension Department Name Role Phone Hong Abarca DDS Unavailable Unavailable Allergies, Adverse Reactions, Alerts Substance Reaction Status Criticality codeine Active No Information PENICILLIN Active No Information Medications Medication Instructions Dosage Effective Dates (start - stop) Status Comments Sprintec (28) 0.25 mg-35 mcg tablet take 1 tablet by oral route every day 1.00 tablet - Active Procedures Procedure Date Limited Oral Evaluation Problem Focused Extraction, Erupted Tooth Or Exposed Carlee t (Elevati Resin-Based Composite Three Surfaces, Posterior Resin-Based Composite One Surface, Posterior Resin-Based Composite Two Surfaces, Anterior Resin-Based Composite One Surface, Anterior Resin-Based Composite Three Surfaces, Posterior Prophylaxis Adult Intraoral Periapical First Film Intraoral Periapical Each Additional Film Intraoral Periapical Each Additional Film Intraoral Periapical Each Additional Film Bitewings Four Films Panoramic Film Comprehensive Oral Evaluatio n New Or Established Extraction, Erupted Tooth Or Exposed Carlee t (Elevati Extraction, Erupted Tooth Or Exposed Carlee t (Elevati Extraction, Erupted Tooth Or Exposed Carlee t (Elevati Extraction, Erupted Tooth Or Exposed Carlee t (Elevati EDR Approval Note Advance Directives Directive Yes / No Effective Date File Name No Information Encounters Encounter Description Practice Location Reason(s) For Visit Diagnoses Date Provider Providers Copied on Encounter [facility], [id number] [place], [place], [id number], [place] tel:[phone] [facility] No Information R[facility] Pitts. [address], [place], [id number], [place]. tel:[phone] Referring Provider: Hong Peralta, [address] [place], [address]. tel:[phone] [facility], [id number] [id number], [place] tel:[phone] [facility] No Information Linden Roman. [address] [place], [address], [place]. tel:[phone] Referring Provider: Abel Chou, [address] [place], [address]. tel:[phone] [facility], [id number] [place], [id number], [place] tel:[phone] [facility] No Information Linden Roman. [address] [place], [address], [place]. tel:[phone] Referring Provider: Abel Cohu, [address] [place], [address]. tel:[phone] Family History Family Member Type Diagnosis Age At Onset No Information Payers Payer name Insurance type Covered republican ID Authoriza tion(s) No Information Social History Type Description Quantity Date Captured Comments Alcohol Use Details No Caffeine Use Details Unknown Tobacco Use Status Smoking Status No Information Sex Female Gender Identity Female Chief Complaint And Reason For Visit No Information Reason For Referral Reason For Referral No Information History Of Present Illness Encounter Date Complaint History Of Prese nt Illness No Information Functional Status Date Functional Assessmen t No Information Instructions Date Instruction Additional Infor mation No Information Assessments Type Assessment Date No Information Patient Care Teams Name Effective Dates (start - stop) Status Members No Information
--- OUTSIDE RECORDS SUMMARY | 2024-11-10 19:33 | XMS_ITS | Encounter Summary ---
Author Organization [facility] Address [address] [place] [address] Care Team Providers Care Lease Operator Name Role Phone Gloria Cooper DO Primary Care Provider [phone] Encounter Details Date Type Department Care Team ([facility] Contact Info) Description 09/18/2024 Results Follow-Up [facility] [address] [place] [address] Shandra Robles, [facility] [address] [place] [address] VAGINOSIS/VAGINITIS PANEL PLUS, CERV/VAG CYTO AGE BASED SCREEN PAP Social History Tobacco Use Types Packs/Day Years Used Date Smoking Tobacco: Never Smokeless Tobacco: Never Alcohol Use Standard Drinks/Week Comments Never 0 (1 standard drink = 0.6 oz pur e alcohol) Comments Unknown Sex and Gender Information Value Date Recorded Sex Assigned at Not on file Legal Sex Female 1:21 PM CDT Gender Identity Not on file Sexual Orientation Not on file documented as of this encounter Plan of Treatment Upcoming Encounters Date Type Department Care Team ([facility] Contact Info) Description 09/16/2025 12:00 PM CDT Office Visit [facility] [address] [place] [address] Abarcajune, [facility] [address] [place] [address] documented as of this encounter Visit Diagnoses Not on filedocumented in this encounter Care Teams Lease Operator Relationship Specialty Start Date End Date Gloria Cooper DO [address] [place] [id number] PCP - General Family Practice 08/19/24 documented as of this encounter
--- OUTSIDE RECORDS SUMMARY | 2024-11-10 19:33 | XMS_ITS | Clinical Summary ---
Author Organization [facility] Address [address] [place] [address] Phone Care Team Providers Care Bobbin Stripper Name Role Phone Gloria Cooper DO Primary Care Provider [phone] Allergies Active Allergy Reactions Criticality Noted Date Comments Codeine Nausea and Vomiting Low 08/19/2024 Penicillins Hives High 08/19/2024 Medications No known medications Active Problems Problem Noted Date Diagnosed Date Irritable bowel syndrome with diarrhea Weight loss 08/19/2024 Other fatigue 08/19/2024 Chronic generalized abdominal pain 08/19/2024 Family history of diabetes mellitus type I 08/19 Encounters Date Type Department Care Team Description 10/07/2024 External Device Data STL ABSTRACTION Provider, Abstract 09/18/2024 Results Follow-Up [facility] [address] [place] [address] Shandra Robles FNP VAGINOSIS/VAGINITIS PANEL PLUS, CERV/VAG CYTO AGE BASED SCREEN PAP 09/16/2024 External Device Data STL ABSTRACTION Provider, Abstract 09/16/2024 Telephone [facility] [address] [place] [address] Gloria Cooper DO Information 09/15/2024 12:00 PM CDT Office Visit [facility] [address] [place] [address] Shandra Robles FNP Encounter for gynecological examination without abnormal finding (Primary Dx); Vaginal discharge; Large labia majora 09/15/2024 External Device Data STL ABSTRACTION Provider, Abstract 09/08/2024 1:40 PM CDT Office Visit [facility] [address] [place] [address] Shandra Robles FNP Weight loss (Primary Dx); Other fatigue; Irritable bowel syndrome with diarrhea 09/01/2024 External Device Data STL ABSTRACTION Provider, Abstract 08/28/2024 Results Follow-Up [place] [address] [place] [address] Shandra Robles FNP CORTISOL LEVEL, VITAMIN B12 AND FOLATE, ALPHA-GAL PANEL, Additional followed-up results: 10 08/25/2024 External Device Data STL ABSTRACTION Provider, Abstract 08/25/2024 External Device Data STL ABSTRACTION Provider, Abstract 08/25/2024 External Device Data STL ABSTRACTION Provider, Abstract 08/21/2024 8:30 AM CDT Clinical Support [place] [address] [place] [address] Weight loss; Other fatigue; Chronic generalized abdominal pain; Family history of diabetes mellitus type I; Encounter to establish care 08/19/2024 2:20 PM CDT Office Visit [place] [address] [place] [address] Shandra Robles FNP Encounter to establish care (Primary Dx); Weight loss; Other fatigue; Family history of diabetes mellitus type I; Chronic generalized abdominal pain from Last 3 Months Family History Medical History Relation Name Comments Autism Brother Hemophilia Father Stomach Cancer Maternal Grandfather Breast Cancer Maternal Grandmother Relation Name Status Comments Brother Father Maternal Grandfather Maternal Grandmother Social History Tobacco Use Types Packs/Day Years Used Date Smoking Tobacco: Never Smokeless Tobacco: Never Tobacco Cessation:Counseling Given: Yes Alcohol Use Standard Drinks/Week Comments Never 0 (1 standard drink = 0.6 oz pur e alcohol) Comments Unknown Sex and Gender Information Value Date Recorded Sex Assigned at Not on file Legal Sex Female 1:21 PM CDT Gender Identity Not on file Sexual Orientation Not on file Last Filed Vital Signs Vital Sign Reading Time Taken Comments Blood Pressure 122/60 09/15/2024 12:09 PM CDT Pulse 75 09/15/2024 12:09 PM CDT Temperature 36.4 C (97.6 F) 09/15/2024 12:09 PM CDT Respiratory Rate 17 09/15/2024 12:09 PM CDT Oxygen Saturation 92% 09/15/2024 12:09 PM CDT Inhaled Oxygen Concentration - - Weight 61.3 kg (135 lb 3.2 oz) 09/15/2024 12:09 PM CDT Height 167.6 cm (5' 6 ) 09/15/2024 12:09 PM CDT Body Mass Index 21.82 09/15/2024 12:09 PM CDT Plan of Treatment Upcoming Encounters Date Type Department Care Team (Late st Contact Info) Description 09/16/2025 12:00 PM CDT Office Visit [facility] [address] [place] [phone] [place], [facility] [address] [place] [address] Health Maintenance Due Date Last Done Comments DTAP/TDAP/TD VACCINES (1 - Tdap) 01/11/2015 HEPATITIS B VACCINES (1 of 3 - 19+ 3-dose series) 01/02 HPV/Cotest (21-29) 01/11/2017 HPV VACCINES (1 - 3-dose SCDM series) 01/11/2023 INFLUENZA VACCINE (#1) 2024 Preventative Visit-Managed Medicaid 09/16/202509/15 CERVICAL CANCER SCREENING 09/16/2027 PAP SMEAR 09/16/2027 09/15/2024 Procedures Procedure Name Priority Date/Time Associated Diagnosis Comments VAGINOSIS/VAGINITIS PANEL PLUS Routine 09/15/2024 1:54 PM CDT Vaginal discharge CERV/VAG CYTO AGE BASED SCREEN PAP Routine 09/15/2024 1:54 AM CDT Encounter for gynecological examination without abnormal finding CBC WITH DIFFERENTIAL Routine 08/21/2024 8:24 AM CDT Encounter to establish care Weight loss Other fatigue Family history of diabetes mellitus type I COMPREHENSIVE METABOLIC PANEL Routine 08/21/2024 8:24 AM CDT Encounter to establish care Weight loss Other fatigue HEMOGLOBIN A1C Routine 08/21/2024 8:24 AM CDT Encounter to establish care Weight loss Other fatigue Family history of diabetes mellitus type I TSH Routine 08/21/2024 8:24 AM CDT Encounter to establish care Weight loss Other fatigue LIPID PANEL Routine 08/21/2024 8:24 AM CDT Encounter to establish care Weight loss Other fatigue IRON, TIBC, AND PERCENT SATURATION Routine 08/21/2024 8:24 AM CDT Weight loss Other fatigue VITAMIN D 25 HYDROXY Routine 08/21/2024 8:24 AM CDT Weight loss Other fatigue GLUTAMIC ACID DECARBOXYLASE ANTIBODY Routine 08/21/2024 8:24 AM CDT Weight loss Other fatigue Family history of diabetes mellitus type I ALLERGY PANEL, FOOD AND TREE NUTS W/COMP Routine 08/21/2024 8:24 AM CDT Chronic generalized abdominal pain CELIAC DISEASE ANTIBODIES Routine 08/21/2024 8:24 AM CDT Chronic generalized abdominal pain ALPHA-GAL PANEL Routine 08/21/2024 8:24 AM CDT Chronic generalized abdominal pain VITAMIN B12 AND FOLATE Routine 08/21/2024 8:24 AM CDT Weight loss Other fatigue CORTISOL LEVEL Routine 08/21/2024 8:24 AM CDT Weight loss Other fatigue from Last 3 Months Results * VAGINOSIS/VAGINITIS PANEL PLUS (09/15/2024 1:54 PM CDT) BACTERIAL VAGINOSIS NEGATIVE NEGATIVE [facility] MARITZA SPECIES NOT DETECTED NOT DETECTED [facility] MARITZA GLABRATA NOT DETECTED NOT DETECTED [facility] Comment: Maritza species C. albicans, C. tropicalis, C. parapsilosis, and/or C. dubliniensis can be detected, but not differentiated, in the Maritza spp. result. TRICHOMONAS VAGINALIS (TV), TMA NOT DETECTED NOT DETECTED [facility] CHLAMYDIA TRACHOMATIS RNA, TMA, UROGENITAL NOT DETECTED NOT DETECTED [facility] NEISSERIA GONORRHOEAE RNA, TMA, UROGENITAL NOT DETECTED NOT DETECTED [facility] Comment: For additional information, please refer to https://education.Nordic Neurostim/faq/ZUS018 (This link is being provided for information/ educational purposes only.) Test Performed at: [facility] [address] [place] [address] Rodri Delgadillo MD Genital SPECIMEN FROM VAGINA / Unknown 09/15/2024 1:54 PM CDT 09/16/2024 3:30 AM CDT Feisouravjuany Robles RESPOOLER MICROBIOLOGY - GENERAL ORD ERABLES Final Result [facility] [phone] [facility] [address] [place] [address] * CERV/VAG CYTO AGE BASED SCREEN PAP (09/15/2024 1:54 AM CDT) COMMENT (PAP): Stefano [facility] Azevedo Comment: This order for age-based cervical cancer and STI screening follows ACOG guidelines(PB 168, 140, EZG174). See individual assays for performing site location. CLINICAL INFORMATION Stefano Azevedo Comment:None given LAST MENSTRUAL PERIOD Stefano Azevedo Comment:09/01/2024 PREV PAP: Stefano Azevedo Comment:2020 NORMAL PREV BX: Stefano Azevedo Comment:NONE GIVEN SOURCE Stefano Azevedo Comment:Endoc[facility]ix ADEQUACY: Stefano Azevedo Comment: Satisfactory for evaluation. Endocervical/transformation zone component present. PAP INTERP Stefano Azevedo Comment: Cytology Results: Negative for intraepithelial lesion or malignancy. COMMENT (PAP TEST) Q uest CarolePaul Azevedo Comment: This Pap test has been evaluated with the ThinPrep(R) Imaging System. OYSTER UNLOADER: Karan Azevedo Comment: MVB, CT(ASCP) CT Screening Location: [place] [address] [address] [place] [address] CLIA: [id number] Slide preparation performed at: [facility], [address] [place] [address], [address] CLIA: [id number] EXPLANATORY NOTE Que CarolePaul Azevedo Comment: EXPLANATORY NOTE: The Pap is a screening test for cervical cancer. It is not a diagnostic test and is subject to false negative and false positive results. It is most reliable when a satisfactory sample, regularly obtained, is submitted with relevant clinical findings and history, and when the Pap result is evaluated along with historic and current clinical information. FASTING: UNKNOWN Test Performed at: [place] [address] [place] [address] Rodri Costello Genital SWAB OF ENDOCERVIX / Unknown 09/15/2024 1:54 AM CDT 09/16/2024 8:54 PM CDT Shandra Robles RESPOOLER PATHOLOGY/CYTOLOGY ORDERAB LES Final Result [facility] [phone] [place] [address] [place] [address] * ALLERGY PANEL, FOOD AND TREE NUTS W/COMP (08/21/2024 8:24 AM CDT) ALLERGEN EGG WHITE <0.10 kU/L [facility] ALLERGEN EGG WHITE CLASS 0 [facility] ALLERGEN PEANUT <0.10 kU/L [facility] ALLERGEN PEANUT CLASS 0 [facility] WHEAT IGE <0.10 kU/L [facility] ALLERGEN WHEAT CLASS 0 [facility] WALNUT IGE <0.10 kU/L [facility] ALLERGEN WALNUT CLASS 0 [facility] ALLERGEN CODFISH <0.10 kU/L Que [facility] ALLERGEN CODFISH CLASS 0 [facility] ALLERGEN MILK <0.10 kU/L [facility] ALLERGEN MILK CLASS 0 [facility] SOYBEAN IGE <0.10 kU/L [facility] ALLERGEN SOYBEAN CLASS 0 [facility] SHRIMP IGE <0.10 kU/L [facility] ALLERGEN SHRIMP CLASS 0 [facility] SCALLOP IGE <0.10 kU/L [facility] ALLERGEN SCALLOP CLASS 0 [facility] SESAME SEED IGE <0.10 kU/L [facility] ALLERGEN SESAME SEED CLASS 0 [facility] ALLERGEN HAZELNUT <0.10 kU/L [facility] ALLERGEN HAZELNUT CLASS 0 [facility] ALLERGEN CASHEW NUT <0.10 kU/L [facility] ALLERGEN CASHEW NUT CLASS 0 [facility] ALLERGEN ALMOND <0.10 kU/L [facility] ALLERGEN ALMOND CLASS 0 [facility] SALMON IGE <0.10 kU/L [facility] ALLERGEN SALMON CLASS 0 [facility] TUNA IGE <0.10 kU/L [facility] ALLERGEN TUNA CLASS 0 [facility] ALLERGEN BRAZIL NUT <0.10 kU/L [facility] BRAZIL NUT % RESPONSE (CLASS) 0 [facility] ALLERGEN MACADAMIA <0.10 kU/L [facility] ALLERGEN MACADAMIA CLASS 0 [facility] ALLERGY PANEL INTERP [facility] Comment: Specific Level of Allergen IGE Class kU/L Specific IGE Antibody ----- --------- 0 <0.10 Absent/Undetectable 0/1 0.10-0.34 Very Low Level 1 0.35-0.69 Low Level 2 0.70-3.49 Moderate Level 3 3.50-17.4 High Level 4 17.5-49.9 Very High Level 5 50-100 Very High Level 6 >100 Very High Level The clinical relevance of allergen results of 0.10-0.34 kU/L are undetermined and intended for specialist use. Allergens denoted with a include results using one or more analyte specific reagents. In those cases, the test was developed and its analytical performance characteristics have been determined by [facility]. It has not been cleared or approved by the U.S. Food and Drug Administration. This assay has been validated pursuant to the CLIA regulations and is used for clinical purposes. Test Performed at: [facility] [id number] [place] [address] Rodri Delgadillo MD Blood 08/21/2024 8:24 AM CDT 08/22/2024 3:08 AM CDT Shandra Robles RESPOOLER CHEMISTRY ORDERABLES Final Result [facility] [phone] [facility] [address] * ALPHA-GAL PANEL (08/21/2024 8:24 AM CDT) ALLERGEN BEEF <0.10 kU/L [facility], ALLERGEN BEEF (F27) CLASS 0 [facility], FOURNIER (F88) IGE <0.10 kU/L [facility], ALLERGEN FOURNIER (F88) CLASS 0 [facility], ALLERGEN PORK <0.10 kU/L [facility], ALLERGEN PORK (F26) CLASS 0 [facility], GALACTOSE - ALPHA -1, 3 - GALACTOSE, IGE <0.10 <0.10 kU/L [facility], Comment: Results above 0.1 kU/L indicate an allergen-specific IgE sensitization to msnrnxozb-f-6,3-galactose, and such patients are at risk for delayed allergic reactions following beef, pork, or fournier consumption. Circulating IgE antibodies may remain undetectable despite a convincing clinical history because these antibodies may be directed towards allergens revealed or altered during industrial processing, cooking, or digestion and therefore do not exist in the original food for which the patient is tested. Sometimes individuals diagnosed with chronic urticaria may develop IgE antibodies directed against human thyroglobulin. Such antibodies may cross-react with the bovine thyroglobulin used in ImmunoCAP(R) Allergen o215, alpha-Gal, leading to a false-positive test result. A definitive diagnosis should be based on the evaluation of both clinical and laboratory findings and not on any single diagnostic method. Additional information can be found at [email or web address] Marksmanship Test Performed at: [facility], [id number] [place] [address] Rosy Bro MD,PhD,AJ [place] Blood 08/21/2024 8:24 AM CDT 08/22/2024 3:08 AM CDT Shandra Robles [facility] CHEMISTRY ORDERABLES Final Result [facility] [phone] [facility], [address] [place] [address] * VITAMIN B12 AND FOLATE (08/21/2024 8:24 AM CDT) Pathologist [facility] VITAMIN B12 388 200 - 1100 pg/mL [facility] Comment: Please Note: Although the reference range for vitamin B12 is 200-1100 pg/mL, it has been reported that between 5 and 10% of patients with values between 200 and 400 pg/mL may experience neuropsychiatric and hematologic abnormalities due to occult B12 deficiency; less than 1% of patients with values above 400 pg/mL will have symptoms. FOLATE, SERUM 5.7 ng/mL [facility] Comment: Reference Range Low: <3.4 Borderline: 3.4-5.4 Normal: >5.4 Test Performed at: [facility] [address] Rodri Delgadillo MD Blood 08/21/2024 8:24 AM CDT 08/22/2024 3:08 AM CDT [facility] CHEMISTRY ORDERABLES Final Result Performing Organization Address [facility] Co de Phone Number [facility] [phone] [facility] [address] * IRON, TIBC, AND PERCENT SATURATION (08/21/2024 8:24 AM CDT) Pathologist [facility] IRON 136 40 - 190 mcg/dL [facility] TIBC 363 250 - 450 mcg/dL (calc) [facility] IRON % SATURATION 37 16 - 45 % (calc) [facility] Comment: Test Performed at: [facility] [address] Rodri Delgadillo MD Blood 08/21/2024 8:24 AM CDT 08/22/2024 3:08 AM CDT Feitin See Robles [facility] CHEMISTRY ORDERABLES Final Result Performing Organization Address [facility] de Phone Number [facility] [phone] [facility] [address] * GLUTAMIC ACID DECARBOXYLASE ANTIBODY (08/21/2024 8:24 AM CDT) Pathologist [facility] GLUTAMIC ACID DECARBOXYLASE AB <5 <5 IU/mL [facility] [place] Comment: This test was performed using the GAD65 JORGE L method, which is standardized against the International reference preparation 97/550. Test Performed at: [facility] [address] [facility] [place] [address] [place], [place] Vadim Jenkins M.D.,PhD Blood 08/21/2024 8:24 AM CDT 08/22/2024 3:08 AM CDT Shandra Robles [facility] CHEMISTRY ORDERABLES Final Result Performing Organization Address [facility]/ZIP Co de Phone Number [facility] [phone] [facility] [address] [facility] [place] [address] * CELIAC DISEASE ANTIBODIES (08/21/2024 8:24 AM CDT) CELIAC SEROLOGY INTER [facility] [place] Comment: No serological evidence for celiac disease is present. tTg may normalize in individuals with celiac disease who maintain a gluten free diet. If high suspicion of celiac disease, consider HLA DQ2 and DQ8 testing to rule out celiac disease. TRANSGLUTAMINASE IGA AB <1.0 U/mL [facility] [place] Comment: Value Interpretation ----- <15.0 Antibody not detected > or = 15.0 Antibody detected IGA 182 47 - 310 mg/dL [facility] [place] Comment: Test Performed at: [facility] [address] [place] [address] [place] Blood 08/21/2024 8:24 AM CDT 08/22/2024 3:08 AM CDT Shandra Robles [facility] CHEMISTRY ORDERABLES Final Result [facility] [phone] [facility] [address] [place] [address] * (ABNORMAL) CBC WITH DIFFERENTIAL (08/21/2024 8:24 AM CDT) WBC 4.2 3.8 - 10.8 Thousand/u L [facility] RBC 4.16 3.80 - 5.10 Million/uL [facility] HEMOGLOBIN 12.9 11.7 - 15.5 g/dL [facility] HEMATOCRIT 41.1 35.0 - 45.0 % [facility] MCV 98.8 80.0 - 100.0 fL [facility] MCH 31.0 27.0 - 33.0 pg [facility] MCHC 31.4(L) 32.0 - 36.0 g/dL [facility] Comment: For adults, a slight decrease in the calculated MCHC value (in the range of 30 to 32 g/dL) is most likely not clinically significant; however, it should be interpreted with caution in correlation with other red cell parameters and the patient's clinical condition. RDW 11.8 11.0 - 15.0 % [facility] PLATELETS 223 140 - 400 Thousand/u L [facility] MPV 10.9 7.5 - 12.5 fL [facility] NEUTROPHIL ABSOLUTE 2,465 1,500 - 7,800 cells/uL [facility] LYMPHOCYTE ABSOLUTE 1,399 850 - 3,900 cells/uL [facility] MONOCYTE ABSOLUTE 223 200 - 950 cells/uL [facility] EOSINOPHIL ABSOLUTE 92 15 - 500 cells/uL [facility] BASOPHILS ABSOLUTE 21 0 - 200 cells/uL [facility] NEUTROPHIL 58.7 % [facility] LYMPHOCYTES 33.3 % [facility] MONOCYTE 5.3 % [facility] EOSINOPHILS 2.2 % [facility] BASOPHILS 0.5 % [facility] Comment: Test Performed at: [facility] [address] [place] [address] Rodri Delgadillo MD Blood 08/21/2024 8:24 AM CDT 08/22/2024 3:08 AM CDT us Shandra Robles RESPOOLER HEMATOLOGY ORDERABLES Magaly l Result [facility] [phone] [facility] [address] [facility] [place] [address] * VITAMIN D 25 HYDROXY (08/21/2024 8:24 AM CDT) VITAMIN D, 25 OH, TOTAL 32 30 - 100 ng/mL [facility] Comment: Vitamin D Status 25-OH Vitamin D: Deficiency: <20 ng/mL Insufficiency: 20 - 29 ng/mL Optimal: > or = 30 ng/mL For 25-OH Vitamin D testing on patients on D2-supplementation and patients for whom quantitation of D2 and D3 fractions is required, the QuestAssureD(TM) 25-OH VIT D, (D2,D3), LC/MS/MS is recommended: order code 20763 (patients >2yrs). See Note 1 Note 1 For additional information, please refer to http://education.Pagido/faq/RZP636 (This link is being provided for informational/ educational purposes only.) Test Performed at: [facility] [address] Rodri Delgadillo MD Blood 08/21/2024 8:24 AM CDT 08/22/2024 3:08 AM CDT Shandra Robles RESPOOLER CHEMISTRY ORDERABLES Final Result [facility] [phone] [address] * TSH (08/21/2024 8:24 AM CDT) Pathologist [facility] TSH 1.13 mIU/L [facility] Comment: Reference Range > or = 20 Years 0.40-4.50 Ranges First trimester 0.26-2.66 Second trimester 0.55-2.73 Third trimester 0.43-2.91 Test Performed at: [facility] [address] [place] [address] Rodri Delgadillo MD Blood 08/21/2024 8:24 AM CDT 08/22/2024 3:08 AM CDT Shandra Robles [facility] CHEMISTRY ORDERABLES Final Result Performing Organization Address [facility] Co de Phone Number [facility] [phone] [facility] [address] [place] [address] * HEMOGLOBIN A1C (08/21/2024 8:24 AM CDT) HEMOGLOBIN A1C 5.1 <5.7 % [facility] Comment: For the purpose of screening for the presence of diabetes: <5.7% Consistent with the absence of diabetes 5.7-6.4% Consistent with increased risk for diabetes (prediabetes) > or =6.5% Consistent with diabetes This assay result is consistent with a decreased risk of diabetes. Currently, no consensus exists regarding use of hemoglobin A1c for diagnosis of diabetes in children. According to [place] Diabetes Association (ADA) guidelines, hemoglobin A1c <7.0% represents optimal control in non- diabetic patients. Different metrics may apply to specific patient populations. Standards of Medical Care in Diabetes(ADA). ESTIMATED AVERAGE GLUCOSE (MG/DL) 100 mg/dL [facility] ESTIMATED AVERAGE GLUCOSE (MMOL/L) 5.5 mmol/L [facility] Comment: Test Performed at: [facility] [address] [place] [address] Rodri Delgadillo MD Blood 08/21/2024 8:24 AM CDT 08/22/2024 3:08 AM CDT Shandra Robles [facility] CHEMISTRY ORDERABLES Final Result Performing Organization Address City/[facility]/ZIP Co de Phone Number [facility] [phone] [facility] [address] [place] [address] * CORTISOL LEVEL (08/21/2024 8:24 AM CDT) CORTISOL LEVEL 10.1 mcg/dL [facility] Comment: Reference Range: For 8 a.m.(7-9 a.m.) Specimen: 4.0-22.0 Reference Range: For 4 p.m.(3-5 p.m.) Specimen: 3.0-17.0 * Please interpret above results accordingly * Test Performed at: [facility] [address] [place] [address] Rodri Delgadillo MD Blood 08/21/2024 8:24 AM CDT 08/22/2024 3:08 AM CDT Shandra Robles RESPOOLER CHEMISTRY ORDERABLES Final Result [facility] [phone] [address] [place] [address] * LIPID PANEL (08/21/2024 8:24 AM CDT) CHOLESTEROL 154 <200 mg/dL [facility] HDL 61 > OR = 50 mg/dL [facility] TRIGLYCERIDE 49 <150 mg/dL [facility] LDL CALCULATED 79 mg/dL (calc) [facility] Comment: Reference range: <100 Desirable range <100 mg/dL for primary prevention; <70 mg/dL for patients with CHD or diabetic patients with > or = 2 CHD risk factors. LDL-C is now calculated using the Oswald-Mendez calculation, which is a validated novel method providing better accuracy than the Friedewald equation in the estimation of LDL-C. Oswald SS et al. GUSTAVO. 2013;310(19): 5784-4850 (http://education.Pagido/faq/MUD896) CHOL/HDL RATIO 2.5 <5.0 (calc) [facility] NON-HDL CHOLESTEROL 93 <130 mg/dL (calc) [facility] Comment: For patients with diabetes plus 1 major ASCVD risk factor, treating to a non-HDL-C goal of <100 mg/dL (LDL-C of <70 mg/dL) is considered a therapeutic option. Test Performed at: [facility] [address] [place] [address] Rodri Delgadillo MD Blood 08/21/2024 8:24 AM CDT 08/22/2024 3:08 AM CDT Shandra Robles RESPOOLER CHEMISTRY ORDERABLES Final Result [facility] [phone] [facility] [address] [place] [address] * COMPREHENSIVE METABOLIC PANEL (08/21/2024 8:24 AM CDT) GLUCOSE 84 65 - 99 mg/dL [facility] Comment: Fasting reference interval BUN 9 7 - 25 mg/dL [facility] CREATININE 0.82 0.50 - 0.96 mg/dL [facility] GFR 100 > OR = 60 mL/min/1. 73m2 [facility] BUN/CREAT RATIO SEE NOTE: 6 - 22 (calc) [facility] Comment: Not Reported: BUN and Creatinine are within reference range. SODIUM 138 135 - 146 mmol/L [facility] POTASSIUM 4.0 3.5 - 5.3 mmol/L [facility] CHLORIDE 104 98 - 110 mmol/L [facility] CO2 25 20 - 32 mmol/L [facility] CALCIUM 9.2 8.6 - 10.2 mg/dL [facility] TOTAL PROTEIN 6.5 6.1 - 8.1 g/dL [facility] ALBUMIN 4.4 3.6 - 5.1 g/dL [facility] GLOBULIN 2.1 1.9 - 3.7 g/dL (calc) [facility] ALBUMIN/GLOBULIN RATIO 2.1 1.0 - 2.5 (calc) [facility] BILIRUBIN TOTAL 1.1 0.2 - 1.2 mg/dL [facility] ALKALINE PHOSPHATASE 46 31 - 125 U/L [facility] AST 11 10 - 30 U/L [facility] ALT 12 6 - 29 U/L [facility] Comment: Test Performed at: [facility] [address] [id number] Rodri Delgadillo MD Blood 08/21/2024 8:24 AM CDT 08/22/2024 3:08 AM CDT Shandra Robles RESPOOLER CHEMISTRY ORDERABLES Final Result [facility] [phone] [facility] [address] [id number] from Last 3 Months Insurance [facility] [employer] MEDICAID Care Teams Bobbin Stripper Relationship Specialty Start Date End Date Gloria Cooper DO [address] [facility] [place] [phone] PCP - General Family Practice 08/19/24
--- NOTE | 2024-11-10 19:34 | XRR_ITS ---
PROCEDURE INFORMATION: Exam: XR Right Wrist Exam date and time: 11/10/2024 7:40 PM Age: 29 years old Clinical indication: Injury or trauma; Fall; Blunt trauma (contusions or hematomas); Wrist; Right TECHNIQUE: Imaging protocol: Radiologic exam of the right wrist. 3 image(s) are submitted. Views: 3 or more views. COMPARISON: No relevant prior studies available. FINDINGS: Bones/joints: Normal. Soft tissues: Normal. XR/XR wrist RT min 3V* [id number] IMPRESSION: No acute findings.
[2024-11-10 19:37] VITALS: BP 115/76; PULSE 61; RESP 14; TEMP 36.7; O2SAT 99
[2024-11-10 19:52] VITALS: BP 115/76; PULSE 61; RESP 14; TEMP 36.7; O2SAT 99
--- NOTE | 2024-11-10 19:54 | XRR_ITS ---
PROCEDURE INFORMATION: Exam: XR Right Forearm Exam date and time: 11/10/2024 8:06 PM Age: 29 years old Clinical indication: Injury or trauma; Fall; Blunt trauma (contusions or hematomas); Arm, lower; Right TECHNIQUE: Imaging protocol: Radiologic exam of the right forearm. 3 image(s) are submitted. Views: 2 views. COMPARISON: CR (UP EXM, ) 11/10/2024 7:40 PM FINDINGS: Bones/joints: Normal. Soft tissues: Normal. XR/XR forearm RT 2V [id number] IMPRESSION: No acute findings.
--- NOTE | 2024-11-10 19:55 | ED_ITS ---
HPI - Extremity Problem General: Chief complaint: Extremity Injury, Upper Stated complaint: RT wrist pain fell off porch Time Seen by Provider: 11/10/24 19:45 Source: patient Mode of arrival: ambulatory Limitations: no limitations History of Present Illness: 29-year-old female states she had fell f or porch last night and landed on her right arm. States she has had pain along with bruising to right wrist and forearm. Pain is worse with movement and palpation she rates it a 5 out of 10 she denies any other injuries denies hitting her head Associated symptoms: Deny chest pain, fever(s) or rash Related Data Previous Rx's ?Medication ?Instructions ?Recorded acetaminophen 325 mg capsule 325 mg PO Q4H PRN fever o r pain 08/20/20 #60 caps sulfamethoxazole 800 1 tab PO BID 7 days #14 tabs 09/17/22 mg-trimethoprim 160 mg tablet (Bactrim DS) Allergies Allergy/AdvReac Type Severity Reaction Status Date / Time Penicillins Allergy childhood Verified 11/10/24 19:40 codeine AdvReac vomiting Verified 11/10/24 19:40 Review of Systems Const: Denies: fever(s), chills, body aches or change in appetite ENMT: Denies: throat pain or dental pain Card: Denies: chest pain Resp: Denies: dyspnea GI: Denies: abdominal pain, nausea, vomiting or diarrhea Musc: Reports: extremity pain; Denies: neck pain or back pain Skin/Breast: Denies: rash Neuro: Denies: headache(s) PFS ED PFSH: Medical History No pertinent past medical history neghx: htn,dm,thyroid,dvt/pe, herpes ---denies partner with herpes Surgical History Hx of cholecystectomy (~03/2016) Family History Grandmother Breast cancer Paternal-- dx age 30s Family/Other Breast cancer Maternal Great Grandmother-- dx age late 50's Grandfather Diabetes Maternal Hypertension Maternal Denies family history of Colon cancer Ovarian cancer Heart disease Bleeding disorder Uterine cancer Thyroid disease Stroke Social History Smoking and tobacco/nicotine status: current every day tobacco/nicotine user e- cigarettes E-Cigarette Details: vaporizer device and with nicotine E-cig/vape details: Refill/4 days - week. Quit status (tobacco/nicotine): considering quitting Second hand smoke exposure: No Alcohol intake: current Alcohol intake frequency: holidays/special occasions only Alcohol type: other Substance/Drug Use: former Date of last use: Marijuana - teens. Additional social history: - Tobacco use: Has Vaped since 2017-- currently vapes 2-3 times weekly Alcohol use: denies Drug use: Marijuana-- last use mid December 2019 Physical Exam Const: COMMON NORMALS: no acute distress, patient oriented x3 and healthy appearing HENMT: COMMON NORMALS: normocephalic and atraumatic HEAD & SCALP: normocephalic and atraumatic Eye: COMMON NORMALS: conjunctivae normal CONJUNCTIVA: Yes conjunctivae normal Neck/C-Spine: COMMON NORMALS: full ROM and supple Chest: COMMONS NORMALS: normal inspection of the chest Resp: COMMON NORMALS: normal respiratory effort Cardio: COMMON NORMALS: regular rate RATE: regular rate Extremity: NARRATIVE EXTREMITY EXAM: Tenderness noted to the right wrist and forearm with contusion no obvious deformity Neuro: COMMON NORMALS: patient oriented x3, moves all extremities and no focal motor deficits Psych: COMMON NORMALS: mental status grossly normal, Normal thought process present and cooperative THOUGHT PROCESS: Normal thought process present Skin: COMMON NORMALS: no rashes or lesions noted and no wounds GENERAL SKIN EXAM: no rashes or lesions noted Course Vital Signs: Vital signs: Vital Signs Temperature 98.0 F 11/10/24 19:52 Pulse Rate 61 11/10/24 19:52 Respiratory Rate 14 11/10/24 19:52 Blood Pressure 115/76 11/10/24 19:52 Pulse Oximetry 99 11/10/24 19:52 Oxygen Delivery Me thod Room Air 11/10/24 19:52 MDM - Extremity (Nontraumatic) Medical Decision Making Patient presents here with contusion to right wrist no fracture noted on x-ray she is well-appearing here she is to ice ibuprofen along with Tylenol follow-up with PCP return if worsening she understands agrees to plan. Medical Records I reviewed the patient's medical records. XR interpretation done by ED provider, pending radiology final review ED provider radiology interpretation(s): xr r wrist: no fx xr r forearm: no fx Discharge Plan Discharge Patient Disposition: Home Clinical Impression: Contusion of right wrist Condition: Stable Prescriptions: No Action sulfamethoxazole-trimethoprim [Bactrim DS] 800-160 mg tablet 1 tab PO BID 7 Days Qty: 14 0RF acetaminophen 325 mg capsule 325 mg PO Q4H PRN (Reason: fever or pain) Qty: 60 0RF Discharge Orders: Discharge ED (Routine); Ordered 11/10/24 Ordered By: Adeel Hardin Discharge Diet: Advance as tolerated Discharge Activity: Resume usual activity Patient Instructions: Contusion in Adults (ED) Print Language: Yoruba Coding Level of Care Code ED Laborer Tree Tapping for Forest Watkins
[2024-11-10] MEDS: HYDROcodone-acetaminophen 5-325 mg Tablet 1 TAB PO (19:57)
== END 2024-11-10 20:35 | disposition home or self-care (01) ==
PROVIDERS: Emergency Provider Emergency Medicine
DX: S60.211A Contusion of right wrist, initial encounter (principal); W17.89XA Other fall from one level to another, initial encounter
CPT/HCPCS: 73090; 73110; 99283; J9999